=== PATIENT | female | born 1980 | race Two or more races ===

== ENCOUNTER 2016-11-22 22:32 | Emergency (ER) | payer OTHER ==
[~2016-11-22] VITALS: Ht 167.6 cm; Wt 68.0 kg
[2016-11-23] MEDS ORDERED: KETOROLAC TROMETH 60MG/2ML VIAL IM ONE (03:00)
[2016-11-23 03:08] VITALS: BP 120/86
== END 2016-11-23 03:15 | disposition home or self-care (01) ==
LOC: ER 22:32
DX: S39.012A Strain of muscle, fascia and tendon of lower back, initial encounter (principal); M25.571 Pain in right ankle and joints of right foot; W19.XXXA Unspecified fall, initial encounter; Y93.89 Activity, other specified; Y99.8 Other external cause status; Y92.89 Other specified places as the place of occurrence of the external cause
CPT/HCPCS: 72100; 73600; 96372; 99284; J1885